=== PATIENT | female | born 1985 | race Caucasian/White ===

== ENCOUNTER 2018-07-20 15:52 | Emergency (ER) | payer BC ==
[~2018-07-20] VITALS: Ht 162.6 cm; Wt 77.3 kg
[~2018-07-20 15:52] MED LIST: NORCO 325 MG-51 TAB PO; PRENATAL1 TA1 PO
[2018-07-20] MEDS ORDERED: BIRTH CONTROL (16:05)
[2018-07-20 16:43] LABS: EOS # 0.1 (0.04-0.40); EOS % 0.6 % (1.0-5.0); HEMATOCRIT 41.6 % (37.0-47.0); HEMOGLOBIN 14.4 g/dL (12.5-16.0); LYMPH# 3.6 (1.50-4.00); MEAN CELL VOLUME 90 fl (78-100); MEAN CORPUSCULAR HEMOGLOBIN 31 pg (27-31); MEAN CORPUSCULAR HGB CONC 35 g/dL (33-37); MEAN PLATELET VOLUME 11.3 fl (7.4-10.4); MONO # 0.6 (0.20-0.80); NEU # 6.5 (1.40-6.50); PLATELET COUNT 376 K/mm3 (130-400); RED BLOOD COUNT 4.64 M/mm3 (4.10-5.30); RED CELL DISTRIBUTION WIDTH 11.9 % (11.5-14.5); WHITE BLOOD COUNT 10.7 K/mm3 (4.8-10.8)
[2018-07-20 16:48] LABS: ALBUMIN 4.2 g/dL (3.5-5.0); CALCIUM 9.5 mg/dL (8.4-10.2); POTASSIUM 3.1 mmol/L (3.6-5.0); TOTAL BILIRUBIN 0.5 mg/dL (0.2-1.3); TOTAL PROTEIN 7.1 g/dL (6.3-8.2)
[2018-07-20 17:53] LABS: ERYTHROCYTE SEDIMENTATION RATE 4 mm/hr (0-20)
[2018-07-20 17:54] LABS: URINE COLOR YELLOW
[2018-07-20 18:10] LABS: PH-URINE 6.5 (5.0 - 8.0); URINE APPEARANCE HAZY; URINE PROTEIN(semi-quant) NEGATIVE (NEGATIVE)
[2018-07-20 18:11] LABS: URINE BILIRUBIN NEGATIVE (NEGATIVE); URINE BLOOD TRACE (NEGATIVE); URINE GLUCOSE NEGATIVE (NEGATIVE); URINE KETONE 1+ (NEGATIVE); URINE LEUKOCYTE ESTERASE TRACE (NEGATIVE); URINE MUCUS PRESENT (NOT PRESENT); URINE NITRATE NEGATIVE (NEGATIVE); URINE UROBILINOGEN NORMAL (NORMAL)
[2018-07-20] MEDS ORDERED: PROMETHAZINE12.5 M5 PO (18:33)
[2018-07-20 18:50] VITALS: BP 104/54
== END 2018-07-20 18:50 | disposition home or self-care (01) ==
LOC: ED 15:52
PROVIDERS: Nurse Practitioner
DX: B34.9 Viral infection, unspecified (principal)
CPT/HCPCS: J1885; J2550; J7030

== ENCOUNTER → 2018-10-21 | Outpatient (CLI) | payer BC ==
[~2018-10-21] MED LIST changes: +BIRTH CONTROL; +PROMETHAZINE12.5 M5 PO
[2018-10-21 17:29] LABS: HEMATOCRIT 41.2 % (37.0-47.0); HEMOGLOBIN 13.8 g/dL (12.5-16.0); RED BLOOD COUNT 4.47 M/mm3 (4.10-5.30); RED CELL DISTRIBUTION WIDTH 12.2 % (11.5-14.5); WHITE BLOOD COUNT 7.3 K/mm3 (4.8-10.8)
[2018-10-21 17:48] LABS: CALCIUM 9.2 mg/dL (8.4-10.2); POTASSIUM 3.7 mmol/L (3.6-5.0)
== END ==
LOC: LAB 16:50
PROVIDERS: Family Medicine
DX: J01.10 Acute frontal sinusitis, unspecified (principal); R05 Cough; F41.8 Other specified anxiety disorders

== ENCOUNTER → 2019-08-24 | Outpatient (CLI) | payer BC ==
[2019-08-26 07:15] LABS: ALTERNARIA TENUIS CNT <0.35 kU/L (<0.35); ASPERGILLUS FUMIGATUS AL COUNT <0.35 kU/L (<0.35); BERMUDA GRASS ALLERGEN COUNT <0.35 kU/L (<0.35); BOX ELDER-MAPLE ALLERGEN COUNT <0.35 kU/L (<0.35); CAT DANDER ALLERGEN COUNT <0.35 kU/L (<0.35); CLADOSPORIUM ALLERGEN COUNT <0.35 kU/L (<0.35); COCKROACH ALLERGEN COUNT <0.35 kU/L (<0.35); COTTONWOOD TREE ALLERGEN COUNT <0.35 kU/L (<0.35); DOG DANDER ALLERGEN COUNT <0.35 kU/L (<0.35); DUST MITES (D.F.) ALLERG COUNT <0.35 kU/L (<0.35); DUST MITES (D.P.) ALLERG COUNT <0.35 kU/L (<0.35); ELM TREE ALLERGEN COUNT <0.35 kU/L (<0.35); FIREBUSH ALLERGEN COUNT <0.35 kU/L (<0.35); OAK ALLERGEN COUNT <0.35 kU/L (<0.35); ROUGH MARSH ELDER ALLERG COUNT <0.35 kU/L (<0.35); RUSSIAN THISTLE ALLERGEN COUNT <0.35 kU/L (<0.35); SHORT RAGWEED ALLERGEN COUNT <0.35 kU/L (<0.35)
== END ==
LOC: LAB 17:01
PROVIDERS: Family Medicine
DX: F41.9 Anxiety disorder, unspecified (principal); J34.89 Other specified disorders of nose and nasal sinuses

== ENCOUNTER → 2020-04-12 | Outpatient (CLI) | payer BC ==
[2020-04-12 10:50] LABS: CALCIUM 9.2 mg/dL (8.3-10.5)
== END ==
LOC: LAB 10:22
PROVIDERS: Family Medicine
DX: J34.89 Other specified disorders of nose and nasal sinuses (principal); F41.9 Anxiety disorder, unspecified; E66.9 Obesity, unspecified

== ENCOUNTER → 2020-07-11 | Outpatient (CLI) | payer BC | LOC: LAB 10:02 | DX: R51.9 Headache, unspecified (principal); R11.0 Nausea; R09.81 Nasal congestion; R42 Dizziness and giddiness; Z20.828 Contact with and (suspected) exposure to other viral communicable diseases ==

== ENCOUNTER → 2024-05-02 | Outpatient (CLI) | payer OTHER ==
[2024-05-02 17:12] LABS: URINE APPEARANCE SLIGHTLY CLOUDY (CLEAR); URINE COLOR YELLOW (YELLOW)
[2024-05-02 17:13] LABS: URINE BILIRUBIN 1+ (NEGATIVE); URINE BLOOD TRACE-INTACT (NEGATIVE); URINE GLUCOSE NEGATIVE (NEGATIVE); URINE KETONE TRACE (NEGATIVE); URINE LEUKOCYTE ESTERASE 1+ (NEGATIVE); URINE NITRATE NEGATIVE (NEGATIVE); URINE PROTEIN(semi-quant) 1+ (NEGATIVE); URINE WBC 31-50 /hpf (0-3)
[2024-05-02 17:16] LABS: URINE MUCUS PRESENT (NOT PRESENT)
== END ==
LOC: LAB 16:46
PROVIDERS: Nurse Practitioner
DX: R30.0 Dysuria (principal)

== ENCOUNTER → 2024-09-22 | Outpatient (CLI) | payer OTHER | LOC: MAMMO 14:30 | DX: Z12.31 Encounter for screening mammogram for malignant neoplasm of breast (principal); N63.20 Unspecified lump in the left breast, unspecified quadrant ==

== ENCOUNTER → 2024-09-26 | Outpatient (CLI) | payer OTHER | LOC: MAMMO 07:30 | DX: R59.0 Localized enlarged lymph nodes (principal) ==